=== PATIENT | female | born 2000 | race African-American/Black ===

== ENCOUNTER 2019-05-13 12:24 | Emergency (ER) | payer MEDICAID ==
[~2019-05-13] VITALS: Ht 170.2 cm; Wt 104.0 kg
[2019-05-13 12:32] VITALS: BP 135/71
[2019-05-13 15:12] LABS: CLARITY URINE CLOUDY (CLEAR); COLOR URINE YELLOW (YELLOW); KETONES URINE 2+ (NEGATIVE); LEUKOCYTE ESTERASE URINE 2+ (NEGATIVE); NITRITE URINE POSITIVE (NEGATIVE); OCCULT BLOOD URINE 1+ (NEGATIVE); PROTEIN URINE TRACE (NEGATIVE); SPECIFIC GRAVITY URINE 1.026 (1.005-1.030)
== END 2019-05-13 16:24 | disposition home or self-care (01) ==
LOC: ER 12:24
DX: N39.0 Urinary tract infection, site not specified (principal)
CPT/HCPCS: 81003; 81025; 87077; 87186; 99283